=== PATIENT | female | born 1995 ===

== ENCOUNTER 2018-09-13 21:49 | Inpatient (IN) ==
[2018-09-13] MEDS ORDERED: Mag Hydrox/Al Hydrox/Simeth 30 ML UDC PO PRN (21:58)
[2018-09-13] MEDS ORDERED: hydrOXYzine pamoate 25 MG CAPSULE PO PRN (21:58)
[2018-09-13] MEDS ORDERED: traZODone 50 MG TABLET PO PRN (21:58)
[2018-09-13] MEDS ORDERED: Haloperidol Lactate 5 MG/ML VIAL IM PRN (21:58)
[2018-09-13] MEDS ORDERED: Nicotine 2 MG GUM BC PRN (21:58)
[2018-09-13] MEDS ORDERED: Ibuprofen 400 MG TABLET PO PRN (21:58)
[2018-09-13] MEDS ORDERED: MOM Conc 10 ML UD.LIQ PO PRN (21:58)
[2018-09-13] MEDS ORDERED: *HR* LORazepam 1 MG TABLET PO PRN (21:58)
[2018-09-13] MEDS ORDERED: *HR* LORazepam 2 MG/ML VIAL IM PRN (21:58)
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
[2018-09-14] MEDS ORDERED: ARIPiprazole 5 MG TABLET PO SCH (21:00)
[2018-09-15 09:11] VITALS: BP 113/74
--- NOTE | 2018-09-15 11:36 | Discharge Summary ---
Date of Encounter: 09/15/18 Time of Encounter: 11:33 Diagnosis - Discharge Diagnosis (1) Major depressive disorder, recurrent episode with anxious distress Status: Chronic Medications - Discharge Medications Prescriptions: ARIPiprazole [Abilify] 5 mg PO HS #30 tablet hydrOXYzine pamoate [HydrOXYzine Pamoate] 25 mg PO TID PRN #60 capsule PRN Reason: Anxiety traZODone [TraZODone] 50 mg PO HS PRN #30 tablet PRN Reason: Insomnia ARIPiprazole [Abilify] 5 mg PO HS #30 tablet 09/15/18 [Rx] hydrOXYzine pamoate [HydrOXYzine Pamoate] 25 mg PO TID PRN #60 capsule 09/15/18 [Rx] traZODone [TraZODone] 50 mg PO HS PRN #30 tablet 09/15/18 [Rx] Allergy/AdvReac Type Severity Reaction Status Date / Time No Known Allergies Allergy Verified 09/13/18 21:56 Provider Date of admission: 09/13/18 21:49 Discharging clinician: Latoya Azar Psychiatry Exam - Constitutional Vitals: Temp Pulse Resp BP Pulse Ox 98.2 F 72 16 113/74 98 09/15/18 09:00 09/15/18 09:00 09/15/18 09:00 09/15/18 09:00 09/15/18 09:00 General appearance: age & developmentally appropriate, well-groomed, well- nourished - Musculoskeletal Gait: normal Station: relaxed Strength & Tone: normal for patient - Psychiatric Patient Orientation: Yes Person, Yes Time, Yes Place Level of alertness: Alert Behavior: calm, cooperative Psychomotor activity: Normal Eye Contact: Maintains Eye Contact Mood Description: Euthymic/stable Affect description: congruent with mood, full range Speech Volume: Normal Speech pattern: normal rate, normal rhythm, normal tone, fluent, spontaneous Language & Vocabulary: consistent with education Thought Process: Linear, Goal Oriented Thought Content: No Suicidal ideation, No Homicidal ideation, No Overt delusions Perceptual Disturbances: No Auditory hallucinations, No Visual hallucinations Attention Span Ability: Capable of Focused Attention Memory Description: Grossly Intact Patient Reliability: Reliable Historian Fund of knowledge: Yes abstraction ability, Yes aware of current events Intelligence Estimate: Average Judgment: Limited Insight: Partial Hospital Course Hospital course: Ms. Helm is a 23 year old female who was admitted secondary to SI and cutting behaviors. Client lives at home with her boyfriend, three children, and for the last two months a female friend of her boyfriend's who recently moved here from [place]. Client states that she became fed up with thinking this new woman was trying to replace her in the home and that she impulsively decided to remove herself from the situation. However, client's boyfriend visited last night with her children and she was able to smooth things over with him. Client states the house is hers and that she can ask any of them to leave at any point. However, client states she is now ok with the other woman staying and that she feels badly for her. At this point she is wanting everyone to stay in the house together. Client denies any thoughts of wanting to hurt this woman or anyone else and reported this was never an issue. Client does have a history of cutting behaviors but denies any further urges to cut or engage in self harm. Able to identify positive coping skills and has a safety plan if urges to cut or SI returns. Client was started on Abilify with prn Vistaril and Trazodone this admission with positive results. Client has had multiple med trials over the years but feels current medication regimen is working for her. States her mood is good today. Denies SI/HI/AH/VH. Already linked with services and states she has an appointment with her counselor in two days. States she would return to the hospital if she felt in danger of harming herself or others and needed a more intensive level of care. Feels stable for discharge home. Total time spent with client greater than 30 minutes. - Time Spent with Patient Total time spent providing and/or coordinating discharge services: Assessment and Plan - Patient/Caregiver Discharge Instructions Activity: resume usual activities as tolerated Diet: regular diet - Follow up Plan Follow up with: [facility] [Outside] - 10/01/18 8:00 am (You have an appointment scheduled with Latrice Sosa CNP for October 01, at 8:00 AM. Please call the office at the number above at least 24 hours in advance if you are unable to make this appointment. ) Functional capacity at discharge: independent ambulation Overall status at discharge: Stable Disposition: Home, Self-Care Quality - Multiple Antipsychotics Patient discharged on 2 or more antipsychotic medications: No Procedures - Procedures Procedures: Medication Management, Crisis Stabilization, Supportive Therapy, Group Therapy
== END 2018-09-15 14:40 | disposition home or self-care (01) | DRG 751 ==
LOC: 1ANU 21:49
PROVIDERS: ADMIT Psychiatry & Neurology Psychiatry; ATTEND Psychiatry & Neurology Psychiatry